=== PATIENT | male | born 1960 | race African-American/Black ===

== ENCOUNTER 2017-01-29 12:56 | Emergency (ER) | payer OTHER ==
[~2017-01-29] VITALS: Ht 177.8 cm; Wt 89.8 kg
--- NOTE | 2017-01-29 13:50 | Diagnostic Imaging Report ---
PROCEDURE:HIP RIGHT 2-3 VW (+/- PELVIS) COMPARISON:None. INDICATIONS:FALL HIP PAIN FINDINGS: BONES:Normal mineralization. No acute, displaced fractures or dislocations. Mild degenerative joint disease in bilateral hip joints. No lytic or blastic lesions. SOFT TISSUES:Several bilateral phleboliths are noted in the pelvis. OTHER:Negative. CONCLUSION: No acute abnormalities. Norberto Cintron M.D. Dictated by: Norberto Cintron M.D. on 01/29/2017 at 13:58 Electronically approved by: Norberto Cintron M.D. on 01/29/2017 at 13:58
[2017-01-29] MEDS ORDERED: CLONIDINE HCL 0.2 MG TAB PO ONE (15:30)
[2017-01-29] MEDS ORDERED: TRAMADOL HCL 50 MG TAB PO ONE (15:30)
[2017-01-29 19:03] VITALS: BP 151/106
== END 2017-01-29 19:19 | disposition home or self-care (01) ==
LOC: ER 12:56
DX: M25.551 Pain in right hip (principal); S70.01XA Contusion of right hip, initial encounter; W01.0XXA Fall on same level from slipping, tripping and stumbling without subsequent striking against object, initial encounter; Y92.008 Other place in unspecified non-institutional (private) residence as the place of occurrence of the external cause; I10 Essential (primary) hypertension; G98.8 Other disorders of nervous system
CPT/HCPCS: 99284